=== PATIENT | female | born 1965 | race Two or more races ===

== ENCOUNTER 2016-07-19 23:07 | Emergency (ER) | payer BC, OTHER ==
[2016-07-19] MEDS ORDERED: IOPAMIDOL 370 (76%) 100 ML VIAL IV ONE (23:08)
[2016-07-19 23:41] LABS: ABSOLUTE NEUTROPHIL COUNT 4.4 K/mm3 (1.8-7.7); BASO % 0.3 % (0.2-1.0); EOS # 0.1 (0.0-0.5); EOS % 1.1 % (0.9-2.9); HEMATOCRIT 40.3 % (37.0-47.0); HEMOGLOBIN 13.5 gm/l (12.0-16.0); IMM NEUT% 0.1 % (0-1); LYMPH # 5.8 (1.0-4.8); LYMPH % 52.7 % (15-45); MEAN CELL VOLUME 95.3 fl (81.0-99.0); MEAN CORPUSCULAR HEMOGLOBIN 31.9 pg (27.0-31.0); MEAN CORPUSCULAR HGB CONC 33.5 g/dl (33.0-37.0); MONO # 0.6 (0.0-0.8); MONO % 5.8 % (4-12); PLATELET COUNT 384 K/mm3 (130-400); RED CELL DISTRIBUTION WIDTH 11.9 % (11.5-14.5)
[2016-07-20 00:05] LABS: ALB/GLOB RATIO 1.3 (>1.0); ALBUMIN 4.2 gm/dL (3.5-5.7); CALCIUM 9.6 mg/dL (8.6-10.3)
[2016-07-20] MEDS ORDERED: FAMOTIDINE 10 MG/ML 2ML VIAL ONE (00:51)
[2016-07-20 00:59] LABS: SPECIFIC GRAVITY 1.015 (1.001-1.030); URINE APPEARANCE CLEAR; URINE BILIRUBIN NEGATIVE (NEGATIVE); URINE BLOOD NEGATIVE (NEGATIVE); URINE COLOR YELLOW; URINE GLUCOSE (UA) NEGATIVE (NEGATIVE); URINE LEUKOCYTE ESTERASE NEGATIVE (NEGATIVE); URINE NITRITE NEGATIVE (NEGATIVE); URINE PROTEIN NEGATIVE (NEGATIVE); URINE UROBILINOGEN 1 mg/dL (0-1 mg/dl)
[2016-07-20] MEDS ORDERED: MAALOX/LIDO2%VISC/SIMETHICONE 40 ML BOT ONE (02:00)
--- NOTE | 2016-07-20 08:49 | US ---
ABDOMINAL-LIMITED COMPARISON: None. HISTORY: Right upper quadrant abdominal pain. The patient states he has history of gallstones. FINDINGS: Gallbladder: Normal size, length 8.9 cm by with 3.4 cm. Normal wall thickness 1.9 mm. No stones or sludge. Common hepatic duct: Normal diameter 2.4 mm. Common bile duct: Normal diameter 1.6 mm IMPRESSION: 1. Normal ultrasound of the gallbladder and bile ducts. Preliminary report by [facility] radiologist Jaime Mcgill MD 07/20/2016 at 01:49
--- NOTE | 2016-07-20 09:53 | CT ---
ABD/PELVIS W/ CON COMPARISON: None. HISTORY: Severe abdominal pain while lying down after eating 2 1/2 hours ago. Technique: No oral contrast. Intravenous injection 100 mL Isovue 370. Using a [employer] Aquilion [address] scanner, images were obtained from the diaphragm to the floor the pelvis. An automated dose reduction technique was used to minimize patient radiation dose. Dose information: CTDIvol (mGy): 10.20 DLP(mGycm): 540.80 FINDINGS: Lung bases: Normal. Inferior mediastinum and heart: Normal. Liver: 2.2 cm diameter focal fatty infiltration next to the fissure of the ligamentum teres. No acute finding. Gallbladder: Distended with mild wall thickening. No radiopaque calculi. Bile ducts: Normal. Pancreas: Normal. Spleen: Normal. Adrenal glands: Normal. Kidneys: Normal. Ureters: Normal Urinary bladder: Normal. Uterus and adnexa: 9 mm enhancing nodule in the fundus of the uterus. No adnexal mass. No free fluid. Blood vessels: Normal Lymph nodes: Normal Stomach: Normal Duodenum: Normal Small intestine: Normal Appendix: 1 segment of the appendix reaches 7 mm in diameter. No appendicolith. Colon: Normal Abdominal wall and supporting musculature: Normal Bones: Normal IMPRESSION: 1. A short segment of the appendix reaches 7 mm diameter, but acute appendicitis is thought unlikely. 2. The gallbladder is distended with some mild wall thickening, similar to the findings on ultrasound of the same day. No acute cholecystitis or cholelithiasis. 3. 9 mm enhancing nodule in the fundus of the uterus, evidence of a uterine leiomyoma. 4. Incidentally noted focal fatty infiltration of the liver. Preliminary report by [facility] radiologist Jaime Mcgill MD 07/20/2016 at 01:01
== END 2016-07-20 02:12 | disposition home or self-care (01) ==
LOC: ED 23:07
DX: K29.70 Gastritis, unspecified, without bleeding (principal); R53.81 Other malaise
CPT/HCPCS: 83690; 85025; 80053; 81003; 74177; 76705; 99284 ×2; 96374; 93005; A9270; Q9967